=== PATIENT | male | born 1965 | race Caucasian/White ===

== ENCOUNTER 2016-07-18 02:01 | Emergency (ER) | payer SELFPAY ==
--- NOTE | 2016-07-18 02:15 | ED Physician Documentation ---
Abdominal Pain - HISTORIAN Historian: patient - HPI Chief Complaint: Abdominal Pain Onset: hours (0030) Duration: constant Timing: still present Context: denies: out of country travel, bad food Severity: moderate Quality: sharp, stabbing Associated Symptoms: denies: fever, chills, nausea, vomiting, coffee ground emesis, bloody emesis, diarrhea, bloody stools, grossly bloody stools, mucous, loss of appetite, testicular pain, back pain Exacerbated by: nothing Relieved by: nothing Further Comments: yes (Patient states that he has some problems chronically with his Madhavi. At one time was told he had IBS. Has intermittent blood in stools. Has had several endoscopies and a colonoscopy done 9-10 years ago. This AM was awaken by a sharp stabbing pain in the RLQ area. No precipitating or modifying factors noted. Last BM yesterday and was normal.) - ROS CONST: no problems GI/: constipation, other (IBS ?) MS/SKIN/LYMPH: none NEURO/PSYCH: none - SOCIAL HX Smoking History: less than 1 pack/day Alcohol Use: none Drug Use: none - FAMILY HX Family History: other (cancer) - PAST HX Past History: GERD, other (IBS, GI bleeding) Surgeries/Procedures: none Immunizations: referred to PCP Home Medications: Ambulatory Orders Medication Instructions Recorded HYDROmorphone HCL [Dilaudid] 2 mg PO Q6 PRN #5 tablet 07/18/16 Ondansetron HCl Rapdis [Zofran Odt] 4 mg PO Q6 PRN #10 tab 07/18/16 Allergies/Adverse Reactions: Allergies Allergy/AdvReac Type Severity Reaction Status Date / Time sulfamethoxazole Allergy Intermediate Itchy Skin Verified 07/18/16 02:17 [From Bactrim] trimethoprim [From Bactrim] Allergy Intermediate Itchy Skin Verified 07/18/16 02 :17 - VITAL SIGNS Vital Signs: Vital Signs Temp Pulse Resp BP Pulse Ox 97.7 F 71 20 126/80 97 07/18/16 02:04 07/18/16 02:04 07/18/16 02:04 07/18/16 02:04 07/18/16 02:04 - REVIEWED ASSESSMENTS Nursing Assessment Reviewed: Yes Vitals Reviewed: Yes Progress - Progress Progress: 0259 Pain is about the same. Not much change with Toradol, Fentanyl. Still seems to be in the RLQ area. Continues to have good bowel sounds. 0320 Continues to have some pain, no improvement, will give Diluadid IV 0348 Dull achy component to pain is improved. Still having sharp component at times. Will give another dose of dilaudid 0350 Has started to have some nausea, probably related to pain meds, given zofran. 0520 Patient is still having some pain but better. Given the option for admission with observation or going home with observation. Patient wanted to go home. Advised to watch for fever or chills, increasing abd pain or nausea. Return tot he ED if needed. ED Results Lab/Radiology - Lab Results Lab Results: Lab Results 07/18/16 07/18/16 02:23 02:23 WBC Pending RBC 4.80 M/ul M/ul (3.90-5.20) Hgb 15.2 g/dL g/dL (12.0-18.0) Hct 45.0 % % (37.0-53.0) MCV 93.8 fl fl (80.0-100.0) MCH 31.7 pg pg (28.0-34.0) MCHC 33.8 g/dL g/dL (30.0-36.0) RDW 13.1 % % (11.3-14.3) Plt Count 236 K/mm3 K/mm3 (130-400) Sodium 147 mmol/L H mmol/L (136-145) Potassium 4.4 mmol/L mmol/L (3.5-5.0) Chloride 110 mmol/L mmol/L (98-110) Carbon Dioxide 28 mmol/L mmol/L (20-32) BUN 18 mg/dL mg/dL (10-26) Creatinine 0.8 mg/dL mg/dL (0.4-1.5) Estimated Creat Clear 140 Est GFR ( Amer) > 60 (60 - ) Est GFR (Non-Af Amer) > 60 (60 - ) Glucose 103 mg/dL H mg/dL (70-99) Calcium 10.0 mg/dL mg/dL (8.5-10.5) Total Bilirubin 0.4 mg/dL mg/dL (0.2-1.2) AST 23 U/L U/L (0-41) ALT 25 U/L U/L (0-45) Alkaline Phosphatase 85 U/L U/L (46-116) Total Protein 7.3 g/dL g/dL (6.0-8.5) Albumin 4.8 g/dL g/dL (3.0-5.5) Amylase 69 U/L U/L (20-104) - Orders Orders: ED Orders Category Date Time Status Place Saline Lock/IV Now Care 07/18/16 02:[address] ABD & PELVIS W/O CON Stat Exams 07/18/16 Completed AMYLASE Routine Lab 07/18/16 02:23 Completed CBC/PLATELET/DIFF Routine Lab 07/18/16 02:23 Results CMP Routine Lab 07/18/16 02:23 Completed URINALYSIS Routine Lab 07/18/16 02:19 Ordered Urine drug screen [DRUG SCREEN URINE MEDICAL ONLY] Lab 07/18/16 Ordered Routine HYDROmorphone HCL [Dilaudid] Med 07/18/16 05:22 Ordered 4 mg PO TAKE HOME PRN HYDROmorphone HCL/PF [Dilaudid] Med 07/18/16 03:27 Discontinued 1 mg IVP NOW ONE HYDROmorphone HCL/PF [Dilaudid] Med 07/18/16 03:48 Discontinued 1 mg IVP NOW ONE Ketorolac Tromethamine [Toradol] Med 07/18/16 02:18 Discontinued 30 mg IVP NOW ONE Ondansetron HCl/Pf [Zofran 4 mg/2 ml] Med 07/18/16 03:52 Discontinued 4 mg .ROUTE .STK-MED ONE Ondansetron HCl/Pf [Zofran 4 mg/2 ml] Med 07/18/16 03:52 Discontinued 4 mg IVP NOW ONE Ondansetron HCl/Pf [Zofran 4 mg/2 ml] Med 07/18/16 04:29 Discontinued 4 mg IVP NOW ONE Promethazine HCl [Phenergan] Med 07/18/16 05:21 Discontinued 25 mg IM NOW ONE fentaNYL CITRATE/PF [Duragesic] Med 07/18/16 02:44 Discontinued 50 mcg IVP NOW ONE fentaNYL CITRATE/PF [Duragesic] Med 07/18/16 03:06 Discontinued 50 mcg IVP NOW ONE Abdominal Pain Physical Exam - Physical Exam General Appearance: alert, moderate distress NECK: normal inspection RESPIRATORY: no resp distress, chest non-tender, breath sounds normal. No: wheezes, rales, rhonchi CVS: reg rate & rhythm, heart sounds normal, equal pulses, no murmur ABDOMEN: soft, no organomegaly, normal bowel sounds, no distension, tenderness ( diffuse, greater in the RLQ area). No: rebound, guarding NEURO: oriented X3, CN's nml as tested, motor nml, sensation nml, mood/affect nml Vital Signs: Vital Signs Temp Pulse Resp BP Pulse Ox 97.7 F 71 20 126/80 97 07/18/16 02:04 07/18/16 02:04 07/18/16 02:04 07/18/16 02:04 07/18/16 02:04 Discharge Clincal Impression: Abdominal pain Prescriptions: HYDROmorphone HCL [Dilaudid] 2 mg PO Q6 PRN #5 tablet PRN Reason: Pain Ondansetron HCl Rapdis [Zofran Odt] 4 mg PO Q6 PRN #10 tab PRN Reason: Nausea / Vomiting Referrals: Rosalinda Rice FNP [Primary Care Provider] - 2 Days Additional Instructions: Start taking clear liquids for the next 24 hours. Take Dialudid as needed for pain. Keep appointment with fundraising assistant on Tuesday. Watch for any fever or chills. If symptoms do not improve to return to the ED. Home Medications: Ambulatory Orders HYDROmorphone HCL [Dilaudid] 2 mg PO Q6 PRN #5 tablet 07/18/16 Ondansetron HCl Rapdis [Zofran Odt] 4 mg PO Q6 PRN #10 tab 07/18/16 Condition: Stable Disposition: 01 HOME, SELF-CARE Decision to Admit: NO Date of Decison to Admit: 07/18/16 Decision Time:
[2016-07-18] MEDS ORDERED: KETOROLAC TROMETHAMINE 30 MG/1ML VIAL IVP ONE (02:18)
[2016-07-18 02:41] LABS: MEAN CORPUSCULAR HEMOGLOBIN 31.7 pg (28.0-34.0); MEAN CORPUSCULAR VOLUME 93.8 fl (80.0-100.0)
[2016-07-18 02:43] LABS: eGFR (African) > 60; eGFR (Non-African) > 60
[2016-07-18] MEDS ORDERED: fentaNYL CITRATE/PF 100 MCG/ 2ML AMP IVP ONE ×2 (02:44→03:06)
--- NOTE | 2016-07-18 03:20 | Diagnostic Imaging Report ---
JOLANTA BERTRAND~ [facility] [id number] [facility] [address] [place], [place]. [address] ~ ~ ~ ~ Report Submission Date: July 18, 2016 3:10:49 AM CDT Patient ~ Study Name: JOLANTA VERNON ~ Date: July 18, 2016 2:54:25 AM CDT ~ Modality Type: CT\SR Gender: M ~ Description: CT ABD W/O CONTRAST : 69 ~ Institution: [facility] Physician: JOLANTA BERTRAND ~ ~ ~ ~ CT of the abdomen and pelvis without contrast Clinical history: ~Right lower quadrant abdominal pain of sudden onset. Technique: ~CT of the abdomen and pelvis is performed without oral or intravenous administration of contrast. ~Sagittal and coronal reconstructions are performed by the technologist. Findings: ~The visualized lung bases are clear. ~The liver and spleen demonstrate normal attenuation without focal defect. ~Gallbladder is normally distended. ~There is no pancreatic or adrenal abnormality. ~The kidneys are of normal size, shape and position. ~Vascular calcification is present in the abdominal aorta without evidence of aneurysm. ~The appendix is visualized and is within normal limits. ~The structures related to the gastrointestinal tract are unremarkable. ~Prostatic calcifications are incidentally noted. ~There is no free fluid in the pelvis or abdomen. Impression: 1. ~Negative appendix. 2. ~Vascular calcification. 3. ~No acute intra-abdominal changes. ~ Electronically signed on July 18, 2016 3:10:49 AM CDT by: August DUCKWORTH
[2016-07-18] MEDS ORDERED: HYDROmorphone HCL/PF 1 MG/ML DISP.SYRIN IVP ONE ×2 (03:27→03:48)
[2016-07-18] MEDS ORDERED: ONDANSETRON HCL/PF 4 MG/ 2ML VIAL IVP ONE ×2 (03:52→04:29)
[2016-07-18] MEDS ORDERED: ONDANSETRON HCL/PF 4 MG/ 2ML VIAL ONE (03:52)
[2016-07-18] MEDS ORDERED: PROMETHAZINE HCL 25 MG/ML VIAL IM ONE (05:21)
[2016-07-18] MEDS ORDERED: HYDROmorphone HCL 2 MG TABLET PO PRN (05:22)
[2016-07-18] MEDS ORDERED: HYDROmorphone HCL 2 MG TABLET PO ONE (05:35)
[2016-07-18 05:53] LABS: APPEARANCE,URINE CLEAR (CLEAR); COLOR,URINE YELLOW (YELLOW); OCCULT BLOOD,URINE NEGATIVE (NEGATIVE); UROBILINOGEN URINE 0.2 Eu (0.2-1.0)
[2016-07-18 05:55] LABS: AMPHETAMINE NEGATIVE ng/mL (<1000); BARBITURATES NEGATIVE ng/mL (<300); CANNABINOIDS NON NEGATIVE ng/mL (<50); COCAINE NEGATIVE ng/mL (<150); METHAMPHETAMINE NEGATIVE ng/mL (<1000); METHYLENEDIOXYMETHAMPHETAMINE NEGATIVE ng/mL (<500)
[2016-07-18 06:00] VITALS: BP 132/80
[2016-07-18 06:52] LABS: MONOCYTES % 3 % (0-11); SEGMENTED NEUTROPHILS % 46 % (39-79)
== END 2016-07-18 05:47 | disposition home or self-care (01) ==
LOC: ED 02:01
DX: R10.31 Right lower quadrant pain (principal)
CPT/HCPCS: 74176; 80053; 80377; 81002; 82150; 85025; J1170; J1885; J2405; J2550; J3010; 96374; 96375; 96376; 99284; G0481; S1016